=== PATIENT | male | born 1950 | race Caucasian/White ===

== ENCOUNTER 2023-09-12 13:37 | Outpatient (CLI) | payer MEDICARE, BC, SELFPAY ==
--- NOTE | ~2023-09-12 | CT_ITS ---
Non-contrast CT scan of the Abdomen and Pelvis Clinical indication: Abdominal pain Technique: 2.5 mm axial scans were obtained through the abdomen and pelvis without intravenous or or al contrast. Dose reduction technique was used on this scan by utilizing automated exposure control a nd iterative reconstruction technique. The dose-length product (DLP) was 1027.56 mGy-cm. Findings: Images through the lung bases reveal no abnormalities. There is no evidence of renal or ureteral calculi. The kidneys and the ureters are nondilated. The liver, spleen, pancreas, gallbladder, and adrenals appear normal.. There are atherosclerotic calc ifications of the aorta. There is no evidence of bowel obstruction. There is sigmoid diverticulosis. Normal appendix. Images through the pelvis were performed. There is no evidence of ascites or lymphadenopathy. Urinary bladder unremarkable. No pelvic mass seen. Impression: No acute abnormality. Sigmoid diverticulosis. Reviewed, dictated and finalized at [facility]. Impression: No acute abnormality. Sigmoid diverticulosis.
== END 2023-09-12 13:38 ==
LOC: MICIMG 13:38
PROVIDERS: PCP Family Medicine Adolescent Medicine; Visit Provider Family Medicine Adolescent Medicine
DX: K57.30 Diverticulosis of large intestine without perforation or abscess without bleeding (principal)
CPT/HCPCS: 74176

== ENCOUNTER 2023-12-10 16:30 | Emergency (ER) | payer MEDICARE, BC, SELFPAY ==
--- NOTE | ~2023-12-10 | XR_ITS ---
XR chest 2V Ordering provider: Jennifer Be MD History: 73 years Male with . shortness of breath . Comparison: April 14, 2017 FINDINGS: MEDIASTINUM: The cardiac silhouette is not enlarged. LUNGS: No infiltrates, effusions or pneumothorax. OTHER: No free air under the diaphragm. Degenerative spine. IMPRESSION: No acute cardiopulmonary pathology. Reviewed, dictated and finalized at location A.
--- NOTE | ~2023-12-10 | CT_ITS ---
CT diagnostic chest wo con Ordering provider: Jennifer Be MD History: 73 years Male with . cough, shortness of breat . Comparison: None. Technique: CT chest without IV contrast. The dose-length product was 770.19 mGy-cm. FINDINGS: VISUALIZED THORACIC INLET: Normal. MEDIASTINUM: Aorta/coronary arteries: Mild atheromatous disease. Heart/other: The heart is not enlarged. Trace of pericardial effusion. Lymph nodes: No mediastinal or hilar adenopathy. LUNGS: Nodule in the right upper lobe measuring 7.4 x 4.8 mm. Tiny nodules seen in the right upper lo be. Tiny nodule in the left upper lobe area measuring 4 mm. Groundglass nodule is seen in the left lo wer lobe measuring 1 cm. No pulmonary masses. No infiltrates or effusions. No pneumothorax. VISUALIZED UPPER ABDOMEN: the visualized upper abdomen is normal. MUSCULOSKELETAL: Soft tissues: The superficial soft tissues are normal. Bones: Age appropriate degenerative changes of the spine. Healed fractures in the left hemithorax. IMPRESSION: 1. No evidence of acute cardiopulmonary pathology. 2. Nodule in the right upper lobe measuring 7.4 x 4.8 mm. Groundglass Nodule in the left lower lobe measuring 1 cm. Other tiny nodules are seen bilaterally. 3-[address] follow-up advised. Reviewed, dictated and finalized at location A. IMPRESSION: 1. No evidence of acute cardiopulmonary pathology. 2. Nodule in the right upper lobe measuring 7.4 x 4.8 mm. Groundglass Nodule i n the left lower lobe measuring 1 cm. Other tiny nodules are seen bilaterally. 3-[address] follow-up advised.
[2023-12-10 16:33] VITALS: BP 170/91; PULSE 99; RESP 20; TEMP 36.9; O2SAT 93
--- NOTE | 2023-12-10 16:47 | ECG_ITS ---
Test Date: 2023-12-10 16:57:32 Measurements Intervals [facility] Rate: 99 P: 62 MI: 157 QRS: 61 QRSD: 106 T: 46 QT: 333 QTc: 429 Interpretive Statements SINUS RHYTHM WITH SINUS ARRHYTHMIA BASELINE ARTIFACT- I, II, III, AVR, AVL, AVF, V1-V6 NORMAL ECG No previous ECG available for comparison Electronically Signed On 12-10-2023 21:13:35 CDT by Brock Hsu D.O.
[2023-12-10 17:00] VITALS: PULSE 99; O2SAT 93
--- NOTE | 2023-12-10 17:02 | ED.SOB ---
HPI - SOB/Dyspnea General Chief Complaint: Shortness of Breath/Dyspnea Stated Complaint: sob Time Seen by Provider: 12/10/23 16:37 Source: patient, family, RN notes reviewed and old records reviewed Mode of arrival: ambulatory Limitations: no limitations History of Present Illness HPI Narrative: This is a 73 year old male with history of PTSD, COPD who presents for evaluation of shortness of breath. Patient states he has been having worsening shortness of breath today after being exposed to cleaning products. He states he put bleach in his toilet yesterday. Today when he went to clean the toilet became short of breath from the fumes. He reports he is having to stop frequently to catch his breath today when he is walking. He was evaluated by his PCP a couple days ago for worsening shortness of breath and chest pain when coughing. He denies a productive cough, fever, swelling. He also denies chest pain with exertion. He uses 3 inhalers for his lung issues. He reports he is scheduled to have CT chest done to assess his lungs on Monday. He also had an EKG done on Monday and he was told that everything looked fine. Related Data Home Medications Medication Instructions Recorded Confirmed ascorbic acid (vitamin C) 500 mg 500 mg PO 09/17/19 12/08/23 capsule albuterol sulfate 90 mcg/actuation 1 puff inhalation Q4H PRN 02/25/22 12/08/23 aerosol inhaler (ProAir HFA) aspirin 325 mg tablet 325 mg PO DAILY 02/25/22 12/08/23 multivitamin 1 tablet PO DAILY 02/25/22 12/08/23 tiotropium bromide 18 mcg capsule 1 cap inhalation DAILY 02/25/22 12/08/23 with inhalation device (Spiriva with HandiHaler) budesonide-formoterol HFA 160 2 puff inhalation Q12H 11/20/23 12/08/23 mcg-4.5 mcg/actuation aerosol inhaler (Symbicort) Allergies Allergy/AdvReac Type Severity Reaction Status Date / Time No Known Allergies Allergy Verified 12/10/23 16:31 Review of Systems Constitutional: Constitutional: Denies weakness Cardiovascular: Cardiovascular: Denies syncope, Denies rapid heart rate, Denies irregular heart rhythm, Denies leg edema and Reports dyspnea Respiratory: Respiratory: Denies chest congestion, Reports cough, Denies hemoptysis, Denies excessive phlegm production and Reports dyspnea Gastrointestinal: Gastrointestinal: Reports abdominal pain (chronic pain when coughing), Denies hematochezia, Denies diarrhea and Denies vomiting Genitourinary: Genitourinary: Denies hematuria, Denies dysuria, Denies penile discharge and Denies testicular pain Musculoskeletal: Musculoskeletal: Denies joint swelling, Denies loss of height and Denies muscle weakness Neurologic: Denies syncope, Denies focal weakness and Denies weakness PMFSH Past Medical History Medical History (Updated 12/10/23 @ 19:14 by Jennifer Be MD) Chronic obstructive pulmonary disease, unspecified Essential (primary) hypertension Major depressive disorder, recurrent, mild Pure hypercholesterolemia, unspecified Surgical History Surgical History Hx of tonsillectomy Hx of total knee arthroplasty Family History Family History Other Asthma Cerebrovascular accident Family history of malignant neoplasm of bone Hypertension Social History Social History Smoking status: Former smoker Smoking end date: 05/15/15 Alcohol intake: current Substance use: never Substance use type: does not use Living arrangements: with family Occupation/Education: retired Gender identity (if verbalized by the patient): Male Sexual Orientation (if Verbalized by the Patient): Straight or Heterosexual Spiritual care concerns: No Agree to blood products: Yes Exam Const: General: no acute distress and alert Nutritional Appearance: obese Orientation/consciousness: patient oriented x3 GIANNAMT: Sherri
[2023-12-10 17:04] LABS: Alveolar/Arterial O2 Gradient 35.5 mmHg; Base Excess ABG -0.8 mEq/l (+/-2.0); Fractional Inspired Oxygen 21 %; HCO3 ABG 23.1 mEq/l (22.0-26.0); Oxygen Content ABG 21.3 %vol (16.0-22.0); Oxygen Saturation ABG 94.7 % (95.0-100.0); Oxyhemoglobin 94.3 % THb (90.0-100.0); PCO2 ABG 36.3 mmHg (35.0-45.0); PO2 ABG 70.8 mmHg (80.0-100.0); PO2 FiO2 Ratio Arterial Blood 3.37 %; Total Hemoglobin 16.1 g/dL (12.0-18.0); pH ABG 7.422 (7.350-7.450)
[2023-12-10 17:05] LABS: Basophils Percent Auto 0.3 % (0.2-1.2); Eosinophils Absolute Auto 0.1 K/mm3 (0-0.3); Eosinophils Percent Auto 0.5 % (0-4.4); Hematocrit 45.6 % (42.0-52.0); Hemoglobin 15.8 g/dL (14.0-18.0); Immature Granulocyte Absolute 0.07 K/mm3 (0.00-0.031); Immature Granulocyte Percent A 0.5 % (0-0.5); Lymphocytes Absolute Auto 1.56 K/mm3 (0.9-3.2); Lymphocytes Percent Auto 10.6 % (18.3-44.2); Mean Corpuscular HGB Conc 34.6 g/dl (32-36); Mean Corpuscular Hemoglobin 32.4 pg (26-34); Mean Corpuscular Volume 93.4 fl (80-100); Mean Platelet Volume 8.9 fl (7.4-10.4); Monocytes Absolute Auto 1.1 K/mm3 (0.1-0.6); Monocytes Percent Auto 7.5 % (2.6-8.5); Neutrophils Absolute Auto 11.9 K/mm3 (1.3-6.7); Neutrophils Percent Auto 80.6 % (45.5-73.1); Platelet Count Result 254 k/mm3 (150-375); Red Blood Count 4.88 M/mm3 (4.6-6.20); Red Cell Distribution Width 13.4 % (11.5-14.5); White Blood Count 14.7 K/mm3 (4.5-10.0)
[2023-12-10 17:05] LABS: Device ROOM AIR; Modified Allen's Test Pass; Site Drawn RIGHT RADIAL
[2023-12-10] MEDS: IPRATROPIUM 0.5 MG/ALBUTEROL SULFATE 2.5 MG AMPUL.NEB 3 ML INHALATION (17:12)
[2023-12-10 17:13] VITALS: PULSE 116; RESP 22
[2023-12-10 17:16] LABS: Prothrombin Time 13.7 Seconds (11.1-14.7)
[2023-12-10 17:17] LABS: Partial Thromboplastin Time 32.5 Seconds (22.3-36.8)
[2023-12-10 17:18] LABS: Alanine Aminotransferase 24 U/L (6-50); Albumin Level 4.5 g/dL (3.5-5.1); Alkaline Phosphatase 80 U/L (38-126); Anion Gap 12 mmol/L (4-12); Aspartate Amino Transferase 28 U/L (17-59); Blood Urea Nitrogen 21 mg/dL (9-20); Calcium 8.8 mg/dL (8.4-10.2); Carbon Dioxide 22 mmol/L (22-30); Chloride 102 mmol/L (98-107); Estimated CRCL calculation 72 ml/min; Estimated Glomerular Filt Rate > 60; Glucose 93 mg/dL (65-110); Potassium 4.4 mmol/L (3.4-5.0); Sodium 136 mmol/L (137-145)
[2023-12-10 17:19] VITALS: PULSE 102; RESP 22
[2023-12-10 17:25] LABS: D Dimer 0.45 ug/mL (<0.48)
[2023-12-10 17:29] LABS: NT Pro B Type Natriuretic Pept 134 pg/mL (19.9-100); Troponin I < 0.012 ng/mL (0.000-0.034)
== END 2023-12-10 19:30 | disposition home or self-care (01) ==
PROVIDERS: Emergency Provider General Practice; PCP Family Medicine Adolescent Medicine
DX: J44.1 Chronic obstructive pulmonary disease with (acute) exacerbation (principal); I10 Essential (primary) hypertension; F32.A Depression, unspecified; E78.5 Hyperlipidemia, unspecified
CPT/HCPCS: 36415; 36600; 71046; 71250; 80053; 82805; 83880; 84484; 85025; 85380; 85610; 85730; 93005; 94640; 99284

== ENCOUNTER 2023-12-18 15:32 | Outpatient (CLI) | payer MEDICARE, BC, SELFPAY ==
--- NOTE | ~2023-12-18 | XR_ITS ---
XR abdomen obstructive series Ordering provider: Bay Baires MD History: . abd pain all over abd for 3-4 months . Comparison: December 04, 2017 FINDINGS: BOWEL: Nonobstructive bowel gas pattern. ORGANOMEGALY: None. SIGNIFICANT PATHOLOGIC CALCIFICATIONS: Calcifications seen in the pelvis are most likely phlebolith's . Metallic shadow seen in the left iliac bone area. OTHER: Sutures are seen in the left paraspinal area. No free air is seen under the diaphragm. Degenerative changes of the spine. Bilateral hip osteoarthritic changes. IMPRESSION: NO ACUTE ABDOMINAL FINDINGS. Reviewed, dictated and finalized at location A.
== END 2023-12-18 15:33 ==
LOC: MICIMG 15:35
PROVIDERS: PCP Family Medicine Adolescent Medicine; Visit Provider Family Medicine Adolescent Medicine
DX: R10.84 Generalized abdominal pain (principal)
CPT/HCPCS: 74019

== ENCOUNTER 2023-12-29 10:52 | Emergency (ER) | payer MEDICARE, BC, SELFPAY ==
[2023-12-29] VITALS (29 sets, daily range): BP systolic 118–171; BP diastolic 70–103; PULSE 76–103; RESP 0–32; TEMP 36.3–36.7; O2SAT 85–96
--- NOTE | ~2023-12-29 | XR_ITS ---
EXAMINATION: XR chest 2V DATE: 12/29/2023 11:57 INDICATION: Shortness of breath. TECHNIQUE: Frontal and lateral views of the chest were obtained. COMPARISON: Chest 2 views 12/10/2023 FINDINGS: There is mild atelectasis at the lung bases. No pleural effusion or pneumothorax. The heart size is normal. IMPRESSION: 1. Mild atelectasis at the lung bases. Reviewed, dictated and finalized at location A.
--- NOTE | ~2023-12-29 | XR_ITS ---
XR chest 1V portable Ordering provider: Brennan Gipson MD History: 73 years Male with . SOB . Comparison: December 29, 2023 FINDINGS: MEDIASTINUM: The cardiac silhouette is slightly enlarged. LUNGS: No effusions or pneumothorax. Prominent markings in the lower lobes with minimal infiltrate wh ich is suggestive of early pneumonia. OTHER: No free air under the diaphragm. IMPRESSION: Bibasilar atelectasis versus pneumonia. Reviewed, dictated and finalized at location A.
--- NOTE | 2023-12-29 10:58 | ECG_ITS ---
Test Date: 2023-12-29 11:01:07 Measurements Intervals [facility] Rate: 86 P: -8 NM: 126 QRS: 34 QRSD: 104 T: 43 QT: 339 QTc: 407 Interpretive Statements SINUS RHYTHM WITH OCCASIONAL SUPRAVENTRICULAR PREMATURE COMPLEXES OTHERWISE NORMAL ECG Compared to ECG 12/10/2023 16:57:32 NO SIGNIFICANT CHANGE Electronically Signed On 12-29-2023 15:09:29 CDT by Charles Mora M.D.
[2023-12-29 11:13] LABS: Basophils Percent Auto 0.3 % (0.2-1.2); Eosinophils Absolute Auto 0.2 K/mm3 (0-0.3); Eosinophils Percent Auto 2.8 % (0-4.4); Hematocrit 49.1 % (42.0-52.0); Hemoglobin 16.7 g/dL (14.0-18.0); Immature Granulocyte Absolute 0.04 K/mm3 (0.00-0.031); Immature Granulocyte Percent A 0.5 % (0-0.5); Lymphocytes Absolute Auto 2.05 K/mm3 (0.9-3.2); Lymphocytes Percent Auto 23.6 % (18.3-44.2); Mean Corpuscular Hemoglobin 32.2 pg (26-34); Mean Corpuscular Volume 94.6 fl (80-100); Monocytes Absolute Auto 0.8 K/mm3 (0.1-0.6); Monocytes Percent Auto 8.9 % (2.6-8.5); Neutrophils Absolute Auto 5.6 K/mm3 (1.3-6.7); Neutrophils Percent Auto 63.9 % (45.5-73.1); Platelet Count Result 234 k/mm3 (150-375); Red Blood Count 5.19 M/mm3 (4.6-6.20); Red Cell Distribution Width 13.1 % (11.5-14.5); White Blood Count 8.7 K/mm3 (4.5-10.0)
[2023-12-29 11:24] LABS: Alanine Aminotransferase 28 U/L (6-50); Albumin Level 4.7 g/dL (3.5-5.1); Alkaline Phosphatase 86 U/L (38-126); Anion Gap 10 mmol/L (4-12); Aspartate Amino Transferase 29 U/L (17-59); Blood Urea Nitrogen 20 mg/dL (9-20); Calcium 9.4 mg/dL (8.4-10.2); Carbon Dioxide 28 mmol/L (22-30); Chloride 100 mmol/L (98-107); Estimated CRCL calculation 57 ml/min; Estimated Glomerular Filt Rate 50; Glucose 94 mg/dL (65-110); Lipase 32 U/L (23-300); Potassium 4.7 mmol/L (3.4-5.0); Sodium 138 mmol/L (137-145)
[2023-12-29 11:29] LABS: Prothrombin Time 13.2 Seconds (11.1-14.7)
[2023-12-29 11:30] LABS: Partial Thromboplastin Time 35.6 Seconds (22.3-36.8)
[2023-12-29 11:35] LABS: Troponin I < 0.012 ng/mL (0.000-0.034)
--- NOTE | 2023-12-29 12:43 | ED.GENADULT ---
HPI - General Adult General Chief complaint: Shortness of Breath/Dyspnea Stated complaint: SOB Time Seen by Provider: 12/29/23 12:21 History of Present Illness HPI narrative: 73-year-old male presenting to the emergency department for evaluation for episode lightheadedness and some shortness of breath this morning. Patient states he does have COPD and has been having some intermittent shortness of breath but today he had some onset of lightheadedness and had some chest tightness. Patient also states he has had some increase sinus drainage which is causing him to have more frequent sore throat. Patient states on December 09 he was cleaning his toilet and expose himself to chlorine fumes. Patient states he has felt okay for the last month but does attribute his symptoms today to that episode in November. Related Data Home Medications Medication Instructions Recorded Confirmed ascorbic acid (vitamin C) 500 mg 500 mg PO 09/17/19 12/18/23 capsule albuterol sulfate 90 mcg/actuation 1 puff inhalation Q4H PRN 02/25/22 12/18/23 aerosol inhaler (ProAir HFA) aspirin 325 mg tablet 325 mg PO DAILY 02/25/22 12/18/23 multivitamin 1 tablet PO DAILY 02/25/22 12/18/23 tiotropium bromide 18 mcg capsule 1 cap inhalation DAILY 02/25/22 12/18/23 with inhalation device (Spiriva with HandiHaler) budesonide-formoterol HFA 160 2 puff inhalation Q12H 11/20/23 12/18/23 mcg-4.5 mcg/actuation aerosol inhaler (Symbicort) Allergies Allergy/AdvReac Type Severity Reaction Status Date / Time No Known Allergies Allergy Verified 12/18/23 14:41 Review of Systems Review of Systems: All systems reviewed & are unremarkable except as noted in HPI and below PMFSH Past Medical History Medical History (Updated 12/29/23 @ 14:53 by Brennan Gipson MD) Chronic obstructive pulmonary disease, unspecified Essential (primary) hypertension Major depressive disorder, recurrent, mild Pure hypercholesterolemia, unspecified Surgical History Surgical History Hx of tonsillectomy Hx of total knee arthroplasty Family History Family History Other Asthma Cerebrovascular accident Family history of malignant neoplasm of bone Hypertension Social History Social History Smoking status: Former smoker Smoking end date: 05/15/15 Alcohol intake: current Substance use: never Substance use type: does not use Living arrangements: with family Occupation/Education: retired Gender identity (if verbalized by the patient): Male Sexual Orientation (if Verbalized by the Patient): Straight or Heterosexual Spiritual care concerns: No Agree to blood products: Yes Exam Narrative: APPEARANCE: Well appearing, no pain, no distress, well-nourished. HEAD: normocephalic, atraumatic. EYES: PERRLA/EOMI, conjunctivae clear. NOSE: Normal no drainage EARS:TMS clear with good light reflex. THROAT: Pharynx clear, no exudate. NECK: Supple. No adenopathy, no masses. RESPIRATORY: Airway patent, respirations nonlabored. Clear to auscultation bilaterally, no rales, rhonchi, wheezing. CARDIOVASCULAR: Regular rate and rhythm without murmurs rubs or gallops. ABDOMINAL: Soft, nontender, nondistended, normal bowel sounds MUSCULOSKELETAL: Moves all extremities. Strength/ROM intact, No edema, No calf tenderness. NEURO: Alert. Cranial nerves II through XII intact. Good gait. Good coordination SKIN: Warm, dry. Normal Color Course Course Emergency Course: Patient felt improved and had no complaints at time of discharge. Vital Signs Vital signs: Vital Signs Temperature 98.0 F 12/29/23 10:59 Pulse Rate 103 H 12/29/23 10:59 Respiratory Rate 22 H 12/29/23 10:59 Blood Pressure 171/82 H 12/29/23 10:59 Pulse Oximetry 94 12/29/23 10:59 Temperature 97.6 F 12/29/23 12:25 Puls
[2023-12-29] MEDS: ALBUTEROL SULFATE NEB 2.5 MG/3 ML INH INHALATION (12:55)
[2023-12-29 13:31] LABS: Influenza A QL RT-PCR Negative (Negative); Influenza B QL RT-PCR Negative (Negative); RSV RNA, RT-PCR Negative (Negative); SARS-CoV-2 RNA PCR Negative (Negative)
== END 2023-12-29 15:16 | disposition home or self-care (01) ==
PROVIDERS: Emergency Provider Emergency Medicine; PCP Family Medicine Adolescent Medicine
DX: R42 Dizziness and giddiness (principal); Z20.822 Contact with and (suspected) exposure to COVID-19; I10 Essential (primary) hypertension; E78.00 Pure hypercholesterolemia, unspecified; J44.9 Chronic obstructive pulmonary disease, unspecified; Z87.891 Personal history of nicotine dependence; Z79.82 Long term (current) use of aspirin; Z79.899 Other long term (current) drug therapy; I49.1 Atrial premature depolarization; R91.8 Other nonspecific abnormal finding of lung field
CPT/HCPCS: 36415; 71045; 71046; 80053; 83690; 84484; 85025; 85610; 85730; 87637; 93005; 94640; 99284

== ENCOUNTER 2024-05-01 09:24 | Outpatient (CLI) | payer MEDICARE, BC, SELFPAY ==
--- NOTE | ~2024-05-01 | NM_ITS ---
EXAMINATION: NM tanner stress w perfusion DATE: 05/01/2024 11:52 INDICATION: Other forms of dyspnea TECHNIQUE: Rest images were obtained following intravenous administration of 10.2 mCi Tc99m tetrofosm in (Myoview). The patient was infused intravenously with Lexiscan (Regadenoson). Then, 31.2 mCi Tc99m tetrofosmin (Myoview) was administered intravenously, and stress images were obtained in the supine position. Repeat post stress images were obtained. Data was reconstructed into short axis and horizon janeen and vertical long axis SPECT images. Gated SPECT images were also obtained. COMPARISON: None. FINDINGS: There is artifactual decreased activity along portions of the septal and inferior justice ext ending to the apex on the rest and stress imaging obtained in the supine position. These normalize on the post stress imaging obtained in the prone position on which there are no perfusion defects to cavanaugh ggest ischemia or infarct. There is normal left ventricular chamber size, wall motion and ejection f raction. Left ventricular ejection fraction measures >70%. IMPRESSION: 1. Normal myocardial perfusion at on the post stress images obtained in the prone position with no ev ident ischemia or infarct.. 2. Left ventricular ejection fraction measuring >70%. Reviewed, dictated and finalized at location A. 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 Normal myocardial perfusion at on the post stress images obtained in the pro ne position with no evident ischemia or infarct.. 2. Left ventricular ejection fraction measuring >70%.
--- NOTE | 2024-05-01 09:54 | EST_ITS ---
Patient Info Name: Gorge Smith Age: 74 years : 1950 Gender: Male Ht: 71 in Wt: 283 lbs BSA: 2.59 m2 HR: 80 bpm BP: 149 / 80 mmHg Exam Date: 05/01/2024 10:42 AM Exam Location: Echo Lab Patient Status: Outpatient Admit Date: 05/01/2024 Staff Ordering Physician: Bay Baires MD Attending Provider: Bay Baires MD Exercise Technologist: Maya Corey [facility] Exercise Physician: Brock Hsu DO Exam Type: CA stress tanner w NM Study Info A regadenoson stress test was performed. Summary 1. 1. Negative lexiscan stress test for ischemic ST changes by ECG criteria. 2. 2. Baseline hypertension. 3. 3. Nuclear scan to follow and will be reported separately. Please correlate with it. 4. 4. Patient informed of the above results. Protocol: Lexiscan Stress ECG Details Stage: REST Duration (min): 1 min : 6 sec HR (bpm): 78 SBP (mmHg): 149 DBP (mmHg): 80 Stage: REST Duration (min): 8 min : 25 sec HR (bpm): 76 SBP (mmHg): 149 DBP (mmHg): 80 Stage: STAGE 1 Duration (min): 0 min : 59 sec HR (bpm): 87 SBP (mmHg): 157 DBP (mmHg): 77 Stage: RECOVERY Duration (min): 1 min : 0 sec HR (bpm): 92 SBP (mmHg): 157 DBP (mmHg): 77 Stage: RECOVERY Duration (min): 2 min : 0 sec HR (bpm): 91 SBP (mmHg): 161 DBP (mmHg): 80 Stage: RECOVERY Duration (min): 3 min : 0 sec HR (bpm): 93 SBP (mmHg): 142 DBP (mmHg): 83 Stage: RECOVERY Duration (min): 3 min : 8 sec HR (bpm): 94 SBP (mmHg): 142 DBP (mmHg): 83 Rest HR: 76 bpm Peak HR: 96 bpm Rest Sys BP: 149 mmHg Peak Sys BP: 161 mmHg Max Pred HR: 146 bpm % Max Pred HR: 66 % Target HR: 124 bpm Max RPP: 15,456 bpm*mmHg Termination Reason: Completed protocol Cardiac Symptoms: Shortness of breath Total Time: 1 min : 0 sec Rest Mccain BP: 80 mmHg Peak Mccain BP: 80 mmHg Total Dose: 0.4 mg Resting ECG Sinus rhythm. Stress ECG No ST changes. Arrhythmias None. Report Signatures
== END 2024-05-01 09:25 | disposition home or self-care (01) ==
PROVIDERS: PCP Family Medicine Adolescent Medicine; Visit Provider Family Medicine Adolescent Medicine
DX: R06.09 Other forms of dyspnea (principal); I51.9 Heart disease, unspecified; Z79.899 Other long term (current) drug therapy
CPT/HCPCS: 78452; 93017; A9502; J2785

== ENCOUNTER 2024-05-23 00:25 | Day surgery (SDC) | payer MEDICARE, BC, SELFPAY ==
[2024-05-02 10:54] VITALS: BMI 39.3
[2024-05-23 11:36] VITALS: BP 134/68; PULSE 90; RESP 20; TEMP 36.4; O2SAT 95
[2024-05-23] MEDS: LACTATED RINGERS 1,000 ML 150 ML IV CONT (11:46)
--- NOTE | 2024-05-23 12:11 | WPDANESEPPF ---
Anes - Initial Pre Proc Eval Procedure: Operation Date: 05/23/24 13:00 Proposed Procedures p Screening Colonoscopy - Jose Rios MD Date/Time: 05/23/24 12:11 Surgeon: Jose Rios MD Pre Op Diagnosis: hx of personal colon polyps Patient Data Age: 74 Gender: M Height: 1.8 m Weight: 126.5 kg Last Vital Signs Temp 36.4 C 05/23/24 11:36 Pulse 90 05/23/24 11:36 Resp 20 05/23/24 11:36 BP 134/68 05/23/24 11:36 Pulse Ox 95 05/23/24 11:36 O2 Del Method Room Air 05/23/24 11:36 Allergies Allergy/AdvReac Type Severity Reaction Status Date / Time No Known Allergies Allergy Verified 05/23/24 11:34 Home Medications ?Medication ?Instructions ?Recorded ?Confirmed ?Type ascorbic acid (vitamin C) 500 mg 500 mg PO DAILY 09/17/19 05/23/24 History capsule albuterol sulfate 90 mcg/actuation 1 puff inhalation Q4H PRN 02/25/22 05/23/24 History aerosol inhaler (ProAir HFA) shortness of breath or wheezing aspirin 325 mg tablet 325 mg PO DAILY 02/25/22 05/23/24 History multivitamin 1 tablet PO DAILY 02/25/22 05/23/24 History tiotropium bromide 18 mcg capsule 1 cap inhalation DAILY 02/25/22 05/23/24 History with inhalation device (Spiriva with HandiHaler) doxazosin 4 mg tablet 4 mg PO DAILY #30 tabs 07/18/23 05/23/24 Rx budesonide-formoterol HFA 160 2 puff inhalation Q12H 11/20/23 05/23/24 History mcg-4.5 mcg/actuation aerosol inhaler (Symbicort) Patient hx anesthesia problems: none Family hx anesthesia problems: none Results Review: All pre-operative results and documents have been reviewed as part of the pre-operative evaluation. [facility] Past Medical History Medical History Major depressive disorder, recurrent, mild Chronic obstructive pulmonary disease, unspecified Essential (primary) hypertension Pure hypercholesterolemia, unspecified Surgical History Surgical History Hx of total knee arthroplasty Hx of tonsillectomy Family History Family History Other Asthma Cerebrovascular accident Family history of malignant neoplasm of bone Hypertension Social History Social History Smoking status: Former smoker Smoking end date: 05/15/15 Alcohol intake: current Substance use: never Substance use type: does not use Living arrangements: with family Occupation/Education: retired Gender identity (if verbalized by the patient): Male Sexual Orientation (if Verbalized by the Patient): Straight or Heterosexual Spiritual care concerns: No Agree to blood products: Yes Anes - Eval Final PreProcedure Day of Procedure 05/23/24 12:11 Patient weight: obese Heart: regular rate and rhythm Lungs: clear to auscultation Airway: Mallampati scale class II Neurological: alert and oriented Last oral intake: >/= 8 hours ASA classification: III Emergent: no Anesthetic plan: proceed Anesthesia type and monitoring: general GIVS and standard monitoring Results Review: All pre-operative results and documents have been reviewed as part of the pre-operative evaluation. Informed Consent: The patient's anesthetic plan and its attendant risks and benefits were discussed with the patient/family/POA. Questions were solicited and answers provided to the satisfaction of the patient/family/POA.
--- NOTE | 2024-05-23 12:29 | PM.HPGS ---
History of Present Illness History of Present Illness Consent: Risks, benefits, and alternatives have been discussed and questions answered. Patient agrees to proceed with procedure. Chief complaint: hx of personal colon polyps Narrative: Gorge Smith is a 74 year old male with colon polyp in 2019 Review of Systems Review of Systems: All systems reviewed & are unremarkable except as noted in HPI and below PMFSH Past Medical History Medical History (Updated 05/23/24 @ 12:34 by Jose Rios MD) Colon polyp Major depressive disorder, recurrent, mild Chronic obstructive pulmonary disease, unspecified Essential (primary) hypertension Pure hypercholesterolemia, unspecified Surgical History Surgical History Hx of total knee arthroplasty Hx of tonsillectomy Family History Family History Other Asthma Cerebrovascular accident Family history of malignant neoplasm of bone Hypertension Social History Social History Smoking status: Former smoker Smoking end date: 05/15/15 Alcohol intake: current Substance use: never Substance use type: does not use Living arrangements: with family Occupation/Education: retired Gender identity (if verbalized by the patient): Male Sexual Orientation (if Verbalized by the Patient): Straight or Heterosexual Spiritual care concerns: No Agree to blood products: Yes Meds Home Medications and Allergies Home Medications ?Medication ?Instructions ?Recorded ?Confirmed ?Type ascorbic acid (vitamin C) 500 mg 500 mg PO DAILY 09/17/19 05/23/24 History capsule albuterol sulfate 90 mcg/actuation 1 puff inhalation Q4H PRN 02/25/22 05/23/24 History aerosol inhaler (ProAir HFA) shortness of breath or wheezing aspirin 325 mg tablet 325 mg PO DAILY 02/25/22 05/23/24 History multivitamin 1 tablet PO DAILY 02/25/22 05/23/24 History tiotropium bromide 18 mcg capsule 1 cap inhalation DAILY 02/25/22 05/23/24 History with inhalation device (Spiriva with HandiHaler) doxazosin 4 mg tablet 4 mg PO DAILY #30 tabs 07/18/23 05/23/24 Rx budesonide-formoterol HFA 160 2 puff inhalation Q12H 11/20/23 05/23/24 History mcg-4.5 mcg/actuation aerosol inhaler (Symbicort) Allergies Allergy/AdvReac Type Severity Reaction Status Date / Time No Known Allergies Allergy Verified 05/23/24 11:34 Vital Signs Vital Signs - 24 hr 05/23/24 11:36 Temperature 97.6 F Pulse Rate 90 Respiratory Rate 20 Blood Pressure 134/68 Pulse Oximetry 95 Oxygen Delivery Room Air Exam Const: General: comfortable and no acute distress HENMT: Face/Nose/Sinus: Normal nares present Eyes: General: appearance normal, both eyes and all related structures Neck: Neck: no JVD Resp: Auscultation: clear to auscultation bilaterally Cardio: Rate: regular rate Rhythm: regular rhythm GI: Inspection: non-distended GI Palp: Yes Soft to palpation Skin: General skin exam: normal color Neuro: General: gait normal Speech: normal speech Extrem: General: normal to inspection Psych: Mental Status: mental status grossly normal Assessment and Plan Assessment and plan (1) Colon polyp: Code(s): K63.5 - Polyp of colon Status: Acute Assessment and Plan: colonoscopy
[2024-05-23 12:49] VITALS: BP 113/62; PULSE 63; RESP 18; O2SAT 94
[2024-05-23 12:59] VITALS: BP 112/72; PULSE 82; RESP 21; O2SAT 95
[2024-05-23 13:09] VITALS: BP 134/68; PULSE 77; RESP 25; O2SAT 95
== END 2024-05-23 13:15 | disposition home or self-care (01) ==
PROVIDERS: PCP Family Medicine Adolescent Medicine; Visit Provider Internal Medicine Gastroenterology
PROC: 0DJD8ZZ Inspection of Lower Intestinal Tract, Via Natural or Artificial Opening Endoscopic (ICD-10-PCS; CPT 45378; principal; 2024-05-23 13:00)
DX: Z12.11 Encounter for screening for malignant neoplasm of colon (principal); K64.8 Other hemorrhoids; K57.30 Diverticulosis of large intestine without perforation or abscess without bleeding; I10 Essential (primary) hypertension; E78.00 Pure hypercholesterolemia, unspecified; F33.8 Other recurrent depressive disorders; J44.9 Chronic obstructive pulmonary disease, unspecified; E66.9 Obesity, unspecified; Z68.38 Body mass index [BMI] 38.0-38.9, adult; Z79.51 Long term (current) use of inhaled steroids; Z79.82 Long term (current) use of aspirin; Z98.890 Other specified postprocedural states; Z86.0100 Personal history of colon polyps, unspecified; Z87.891 Personal history of nicotine dependence; Z80.8 Family history of malignant neoplasm of other organs or systems; Z80.49 Family history of malignant neoplasm of other genital organs
CPT/HCPCS: G0105; J2003; J2704; J7120

== ENCOUNTER 2024-08-21 11:52 | Outpatient (CLI) | payer MEDICARE, BC, SELFPAY ==
--- NOTE | ~2024-08-21 | XR_ITS ---
AP and lateral views of the bilateral hips Clinical history: Pain Findings: No acute fracture or dislocation is seen. There is advanced degenerative change of the left hip joint, joint space narrowing, osteophyte formation, and reactive sclerosis. There is mild to mod erate degenerative change of the right hip joint.. Soft tissues are unremarkable. Impression: Advanced left hip joint degenerative change. Mild to moderate right hip joint degenerative change. Reviewed, dictated and finalized at location M. Impression: Advanced left hip joint degenerative change. Mild to moderate right hip joint d egenerative change.
--- NOTE | ~2024-08-21 | XR_ITS ---
Right Knee Technique: AP, lateral, and sunrise views were obtained. Clinical History: Pain Findings: No fracture or dislocation is seen. Also bony excrescence or heterotopic ossification at th e region of the distal femoral shaft. Right knee arthroplasty in place. No hardware convocation evide nt. Scattered metallic foreign bodies are present in the distal thigh. No joint effusion is seen. Impression: No acute abnormality. Possibly bony excrescence or heterotopic ossification at the distal aspect of the femur. Scattered metallic foreign bodies, presumably posttraumatic in nature. Correlate with relevant histor y. Reviewed, dictated and finalized at location . Impression: No acute abnormality. Possibly bony excrescence or heterotopic ossification at the distal aspect of t he femur. Scattered metallic foreign bodies, presumably posttraumatic in nature. Correlat e with relevant history.
--- NOTE | ~2024-08-21 | XR_ITS ---
Left Knee Technique: AP, lateral, and sunrise views were obtained. Clinical History: Pain Findings: No fracture or dislocation is seen. Left knee arthroplasty in place. Small scattered metall ic foreign bodies present about the knee. No joint effusion is seen. Impression: No acute abnormality. Left knee arthroplasty in place. Small scattered metallic foreign bodies. Reviewed, dictated and finalized at [facility]. Impression: No acute abnormality. Left knee arthroplasty in place. Small scattered metallic foreign bodies.
== END 2024-08-21 11:53 | disposition home or self-care (01) ==
PROVIDERS: PCP Family Medicine Adolescent Medicine; Visit Provider Family Medicine Adolescent Medicine
DX: M25.561 Pain in right knee (principal); M25.562 Pain in left knee; Z96.653 Presence of artificial knee joint, bilateral; M16.0 Bilateral primary osteoarthritis of hip
CPT/HCPCS: 73521; 73562

== ENCOUNTER 2025-01-21 10:35 | Outpatient (CLI) | payer MEDICARE, BC, SELFPAY ==
--- NOTE | ~2025-01-21 | XR_ITS ---
XR lumbar spine 2-3V Indication: M54.50 - Low back pain, unspecified Comparison: None Findings: Grade 1 anterolisthesis L4 on L5, moderate loss of vertebral height, no acute fracture. Moderate loss of disc height throughout Soft tissues unremarkable Impression: No acute abnormality. Reviewed, dictated and finalized at location A. Impression: No acute abnormality.
== END 2025-01-21 10:36 | disposition home or self-care (01) ==
LOC: MICIMG 10:37
PROVIDERS: PCP Family Medicine Adolescent Medicine; Visit Provider Family Medicine Adolescent Medicine
DX: M54.50 Low back pain, unspecified (principal)
CPT/HCPCS: 72100

== ENCOUNTER 2025-02-14 15:21 | Outpatient (CLI) | payer MEDICARE, BC, SELFPAY ==
--- NOTE | ~2025-02-14 | XR_ITS ---
XR lumbar spine 2-3V Indication: ANTEROLISTHESIS Comparison: None Findings: Moderate loss of vertebral height throughout. Mild levoconvex scoliosis. No fracture or subluxation. No subluxation with flexion and extension Moderate loss of disc height throughout. Soft tissues unremarkable Impression: No acute abnormality. Reviewed, dictated and finalized at location P. Impression: No acute abnormality.
--- NOTE | ~2025-02-14 | CT_ITS ---
EXAMINATION: CT lumbar spine wo con COMPARISON: None HISTORY: LUMBAR STENOSIS TECHNIQUE: Axial images were obtained through the spine without IV contrast. Coronal, sagittal reconstruction images were obtained from the axial views. CT scan performed using dose optimization techniques including the following automated exposure control; adjustment of mA and/or kV; use of iterative reconstruction technique. Automatic exposure control was used to reduce radiation dose. Permanent radiation dose record is archived to PACS. FINDINGS: Grade 1 anterolisthesis L4 on L5, no fracture is identified. Moderate loss of vertebral height throughout. Severe loss of disc height at L5-S1 with moderate to severe canal and foraminal stenosis at L4-5 and L5-S1, MRI suggested to further evaluate. Soft tissues unremarkable. Impression: No acute abnormality. Reviewed, dictated and finalized at location P. Impression: No acute abnormality.
== END 2025-02-14 15:22 | disposition home or self-care (01) ==
LOC: MICIMG 15:22
PROVIDERS: PCP Family Medicine Adolescent Medicine; Visit Provider Physician Assistant
DX: M48.062 Spinal stenosis, lumbar region with neurogenic claudication (principal)
CPT/HCPCS: 72100; 72131